=== PATIENT | male | born 1990 | race Native Hawaiian/Other Pacific Islander ===

== ENCOUNTER 2016-11-26 15:22 | Emergency (ER) | payer BC, OTHER ==
[2016-11-26 15:37] VITALS: RESP 18; TEMP 98.2
[2016-11-26] MEDS ORDERED: Sodium Chloride 0.9% 1,000 ML IV ONE (15:41)
[2016-11-26 16:11] LABS: BASO % 0.5 % (0.0-2.0); EOS # 0.2 K/uL (0.0-0.7); EOS % 2.2 % (0.0-4.0); HEMOGLOBIN 15.2 g/dL (12.0-18.0); LYMPH # 2.3 K/uL (1.0-4.3); LYMPH % 26.1 % (20.0-40.0); MEAN CELL VOLUME 86.8 fL (80.0-94.0); MEAN CORPUSCULAR HEMOGLOBIN 29.8 pg (27.0-31.0); MEAN CORPUSCULAR HGB CONC 34.4 g/dL (33.0-37.0); MEAN PLATELET VOLUME 9.2 fL (7.2-11.7); MONO # 0.6 K/uL (0.0-0.8); MONO % 6.4 % (0.0-10.0); NEUT # 5.7 K/uL (1.8-7.0); NEUT % 64.8 % (50.0-75.0); RBC 5.11 Mil/uL (4.40-5.90); RED CELL DISTRIBUTION WIDTH 12.9 % (11.5-14.5); WHITE BLOOD COUNT 8.8 K/uL (4.8-10.8)
[2016-11-26 16:24] LABS: ALBUMIN 4.4 g/dL (3.5-5.0)
[2016-11-26 16:27] LABS: ALB/GLOB RATIO 1.3 (1.0-2.1); ALT/SGPT 87 U/L (21-72); AST/SGOT 45 U/L (17-59); BLOOD UREA NITROGEN 10 mg/dL (9-20); CALCIUM 9.3 mg/dl (8.6-10.4); GFR AFRICAN-AMERICAN > 60; GFR NON-AFRICAN AMERICAN > 60
--- NOTE | 2016-11-26 17:06 | C.PDOC ---
History Of Present Illness 26 y/o male with PMHx of seizures disorder brought to the ED by ambulance s/p witnessed seizure at home today. Pt states he did not take his Lamotrigine dose today. Notes that his last seizure was 2 years ago. Patient denies current physical complaints. Time Seen by Provider: 11/26/16 15:33 Chief Complaint (Nursing): Seizure History Per: Patient History/Exam Limitations: no limitations Number Of Seizures: One Length Of Seizures (Duration): Seconds Precipitating Factor(s): Missed Dose Of Anti-seizure Medication Severity: Mild Additional History Per: Patient Past Medical History Reviewed: Historical Data, Nursing Documentation, Vital Signs Vital Signs: Last Vital Signs Temp 98.2 F 11/26/16 17:15 Pulse 92 H 11/26/16 17:15 Resp 18 11/26/16 17:15 BP 107/82 11/26/16 17:15 Pulse Ox 96 11/26/16 18:18 - Medical History PMH: Seizures Family History: States: No Known Family Hx - Social History Hx Alcohol Use: No Hx Substance Use: No - Immunization History Hx Tetanus Toxoid Vaccination: Yes Hx Influenza Vaccination: Yes Hx Pneumococcal Vaccination: No Review Of Systems Except As Marked, All Systems Reviewed And Found Negative. Constitutional: Negative for: Fever, Chills Cardiovascular: Negative for: Chest Pain, Palpitations Respiratory: Negative for: Cough, Shortness of Breath Gastrointestinal: Negative for: Nausea, Vomiting, Abdominal Pain Neurological: Negative for: Weakness, Numbness, Headache, Dizziness Physical Exam - Physical Exam Appears: Well, Non-toxic, No Acute Distress Skin: Normal Color, Warm, Dry Head: Atraumatic, Normacephalic Eye(s): bilateral: Normal Inspection, PERRL, EOMI Oral Mucosa: Moist Tongue: Normal Appearing, No Bite, No Laceration Lips: Normal Appearing Neck: Normal, Normal ROM, No Midline Cervical Tenderness, No Paracervical Tenderness, No Step Off Deformity, Supple Cardiovascular: Rhythm Regular, Murmur Respiratory: Normal Breath Sounds, No Accessory Muscle Use, No Rales, No Rhonchi , No Wheezing Gastrointestinal/Abdominal: Normal Exam, Bowel Sounds, Soft, No Tenderness Extremity: Normal ROM, No Pedal Edema, No Deformity Extremity: Bilateral: Atraumatic, Normal Color And Temperature, Normal ROM Neurological/Psych: Oriented x3, Normal Speech, Normal Cognition ED Course And Treatment - Laboratory Results Result Diagrams: 11/26/16 16:07 11/26/16 16:07 O2 Sat by Pulse Oximetry: 96 (on RA) Pulse Ox Interpretation: Normal Progress Note: Blood work ordered and reviewed. Pt was given PO Lamotrigine and IV NS bolus. Reevaluation Time: 17:05 Reassessment Condition: Improved (On reassessment, patient is resting comfortably. Blood work unremarkable. Patient instructed to take his Lamotrigine daily (level currently pending), and to follow up with his neuroogist within 1 week. He understands he should return to ED if symptoms worsen.) Disposition Counseled Patient/Family Regarding: Studies Performed, Diagnosis, Need For Followup - Disposition Referrals: Marciano Henao MD [Staff Provider] - [facility] [Outside] Disposition: HOME/ ROUTINE Disposition Time: 17:05 Condition: STABLE Additional Instructions: FOLLOW UP WITH NEUROLOGY WITHIN 1 WEEK DRINK PLENTY OF FLUIDS TAKE YOUR LAMOTRIGINE REGULARLY RETURN TO ER IF YOU HAVE ANY CONCERNING SYMPTOMS Instructions: Recurrent Seizures in Adults (ED) Print Language: KAZAKH - POA Present On Arrival: None - Clinical Impression Clinical Impression: Seizure disorder - Scribe Statement The provider has reviewed the documentation as recorded by the Scribe Brando Rangel All medical record entries made by the Scribe were at my direction and personally dictated by me. I have reviewed the chart and agree that the record accurately reflects my personal performance of the history, physical exam, medical decision making, and the department course for this patient. I have also personally directed, reviewed, and agree with the discharge instructions and disposition.
[2016-11-26 17:16] VITALS: BP 107/82; PULSE 92
[2016-11-26 18:14] VITALS: O2SAT 96
--- NOTE | 2016-11-29 11:13 | CARD ---
APPROVED REPORT EKG Measurement Heart [id number] <Conclusion> Sinus tachycardia RsR' QRS CONFIG Nonspecific T wave abnormality Abnormal ECG
[2016-11-29 11:23] LABS: LAMOTRIGINE 1.8 mcg/mL (4.0-18.0)
== END 2016-11-26 17:16 | disposition home or self-care (01) ==
LOC: C.ER 15:22
DX: G40.909 Epilepsy, unspecified, not intractable, without status epilepticus (principal)
CPT/HCPCS: 80053; 80299; 82550; 82948; 85025; 93005; 96360; 99285; J7040